=== PATIENT | female | born 2000 | race Hispanic/Latino ===

== ENCOUNTER 2021-01-31 20:00 | Emergency (ER) | payer SELFPAY ==
[2021-01-31] MEDS ORDERED: ONDANSETRON 4 MG/2 ML INJ IV ONE (20:05)
[2021-01-31] MEDS ORDERED: MORPHINE 4 MG/1 ML INJ IV ONE (20:05)
[2021-01-31] MEDS ORDERED: SODIUM CHLORIDE 0.9% 1000 ML 1,000 ML IV ONE (20:05)
[2021-01-31 20:17] VITALS: BP 165/92
[2021-01-31 20:17] LABS: Hematocrit 45.3 % (30.3-42.9); Hemoglobin 15.8 gm/dl (10.1-14.3); Mean Corpuscular HGB Conc 35 % (30-34); Mean Corpuscular Volume 87 fl (79-97); Platelet Count 295 K/mm3 (140-440); Red Blood Count 5.19 M/mm3 (3.65-5.03); Red Cell Distribution Width 12.4 % (13.2-15.2)
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
[2021-01-31 20:27] LABS: Blood Urea Nitrogen 9 mg/dL (7-17); Calcium 9.7 mg/dL (8.4-10.2); Hemolysis Index 23
[2021-01-31 20:33] LABS: BUN/Creatinine Ratio 13
[2021-01-31 21:09] LABS: RBC Morphology Normal; Total Cells Counted 100
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
[2021-01-31] MEDS ORDERED: TETANUS,DIPH,PERTUSS(ACELL) VACCINE 0.5 ML SYRINGE IM ONE (23:20)
== END 2021-01-31 23:58 | disposition home or self-care (01) ==
LOC: EEVIPCON 20:00 → ED 20:00
DX: S81.801A Unspecified open wound, right lower leg, initial encounter (principal); Z79.899 Other long term (current) drug therapy; W34.09XA Accidental discharge from other specified firearms, initial encounter; Y93.89 Activity, other specified; Y92.89 Other specified places as the place of occurrence of the external cause; Y99.8 Other external cause status
CPT/HCPCS: 36415; 71045; 73590; 73706; 80048; 84702; 85007; 85025; 96361; 96374; 96375; 99284; J2270; J2405; Q9967